=== PATIENT | female | born 1990 | race Caucasian/White ===

== ENCOUNTER 2017-07-10 11:14 | Emergency (ER) | payer MEDICAID ==
[~2017-07-10] VITALS: Ht 162.6 cm; Wt 136.4 kg
[~2017-07-10 11:14] MED LIST: CECLOR PULVULE500 MG PO; FLEXERIL 1010 MG/TAB PO; GLUCOPHAGE500 MG/TAB PO; NAPROSYN500 MG PO; NO HOME MEDICATIONS; PRENATAL MVI PO
[2017-07-10 11:18] VITALS: BP 155/87; PULSE 95; TEMP 98.1
[2017-07-10 12:36] LABS: INFLUENZA B NEGATIVE
== END 2017-07-10 12:50 | disposition home or self-care (01) ==
LOC: COL.ER 11:14
PROVIDERS: Nurse Practitioner
DX: B34.9 Viral infection, unspecified (principal)

== ENCOUNTER 2017-11-13 13:12 | Emergency (ER) | payer MEDICAID ==
[~2017-11-13] VITALS: Ht 162.6 cm; Wt 119.8 kg
[2017-11-13 13:14] VITALS: TEMP 99.5
[2017-11-13 14:33] LABS: BASO % 0.3 % (0.0-2.0); EOS # 0.3 (0.0-0.7); EOS % 3.3 % (0-4.0); GRAN # 6.7 (1.4-6.5); GRAN % 73.6 % (42.2-75.2); HEMATOCRIT 39.7 % (37.0-47.0); HEMOGLOBIN 13.1 g/dl (12.5-16.0); LYMPH # 1.4 (1.2-3.4); LYMPH % 15.7 % (20.0-51.0); MEAN CELL VOLUME 88 fl (80.0-100.0); MEAN CORPUSCULAR HEMOGLOBIN 29 pg (27.0-31.0); MEAN CORPUSCULAR HGB CONC 33 g/dl (33.0-37.0); MONO # 0.6 (0.1-0.6); MONO % 6.6 % (1.7-9.3); PLATELET COUNT 197 K/mm3 (130-400); RED BLOOD COUNT 4.49 M/mm3 (4.10-5.30); REDCELL DISTRIBUTION WIDTH-CV 14.4 % (11.5-14.5)
[2017-11-13 14:44] LABS: COLLECTION METHOD CLEAN CATCH
[2017-11-13 14:45] LABS: ALBUMIN 3.9 gm/dL (3.5-5.0); BILIRUBIN,TOTAL 1.6 mg/dL (0.0-1.0); C-REACTIVE PROTEIN 1.3 mg/dL (0.0-0.9); CALCIUM 8.6 mg/dL (8.4-10.2); CREATININE, serum 0.7 mg/dL (0.52-1.25); POTASSIUM 4.2 mmol/L (3.4-5.0); TOTAL PROTEIN 7.3 gm/dL (6.4-8.2)
[2017-11-13 15:24] LABS: MUCOUS Present /lpf; PH 5 (5-8); SQUAMOUS EPITHELIAL 0-2 /hpf; URINE APPEARANCE Clear; URINE BACTERIA Rare /hpf; URINE BILIRUBIN Negative (NEGATIVE); URINE BLOOD 1+ (NEGATIVE); URINE COLOR Yellow; URINE GLUCOSE Negative (NEGATIVE); URINE KETONE Negative (NEGATIVE); URINE LEUKOCYTE ESTERASE Negative (NEGATIVE); URINE NITRATE Negative (NEGATIVE); URINE PROTEIN(semi-quant) 3+ (NEGATIVE); URINE RBC 0-2 /hpf; URINE UROBILINOGEN Negative (NEGATIVE)
[2017-11-13] MEDS ORDERED: ZOFRAN ODT4 MG PO (16:25)
[2017-11-13 16:39] VITALS: BP 120/69; PULSE 88
== END 2017-11-13 16:41 | disposition home or self-care (01) ==
LOC: COL.ER 13:12
PROVIDERS: Nurse Practitioner
DX: R11.2 Nausea with vomiting, unspecified (principal); Z88.8 Allergy status to other drugs, medicaments and biological substances; Z98.890 Other specified postprocedural states
CPT/HCPCS: J2405; J7030

== ENCOUNTER 2018-01-15 08:10 | Emergency (ER) | payer MEDICAID ==
[~2018-01-15] VITALS: Ht 162.6 cm; Wt 140.9 kg
[~2018-01-15 08:10] MED LIST changes: +ZOFRAN ODT4 MG PO
[2018-01-15 08:41] VITALS: BP 138/85; PULSE 82; TEMP 97.8
== END 2018-01-15 08:41 | disposition home or self-care (01) ==
LOC: COL.ER 08:10
DX: H10.13 Acute atopic conjunctivitis, bilateral (principal)

== ENCOUNTER 2018-01-31 17:05 | Emergency (ER) | payer MEDICAID ==
[~2018-01-31] VITALS: Ht 162.6 cm; Wt 145.5 kg
[2018-01-31] MEDS ORDERED: POLYMYXIN B/TRIMETH OD (17:45)
[2018-01-31 18:05] VITALS: BP 140/96; PULSE 98; TEMP 98.2
== END 2018-01-31 18:06 | disposition home or self-care (01) ==
LOC: COL.ER 17:05
DX: H10.9 Unspecified conjunctivitis (principal); Z88.0 Allergy status to penicillin; Z90.89 Acquired absence of other organs; Z96.22 Myringotomy tube(s) status; Z98.890 Other specified postprocedural states

== ENCOUNTER 2018-07-01 19:32 | Emergency (ER) | payer MEDICAID ==
[~2018-07-01] VITALS: Ht 162.6 cm; Wt 130.0 kg
[~2018-07-01 19:32] MED LIST changes: +POLYMYXIN B/TRIMETH OD
[2018-07-01 19:38] VITALS: BP 153/85; TEMP 98
[2018-07-01 20:22] LABS: COLLECTION METHOD CLEAN CATCH
[2018-07-01 20:48] LABS: MUCOUS Present /lpf; PH 5 (5-8); URINE APPEARANCE Hazy; URINE BACTERIA Occasional /hpf; URINE BILIRUBIN Negative (NEGATIVE); URINE BLOOD Negative (NEGATIVE); URINE COLOR Yellow; URINE GLUCOSE Negative (NEGATIVE); URINE KETONE Negative (NEGATIVE); URINE LEUKOCYTE ESTERASE Negative (NEGATIVE); URINE NITRATE Positive (NEGATIVE); URINE PROTEIN(semi-quant) 3+ (NEGATIVE); URINE RBC 0-2 /hpf; URINE UROBILINOGEN Negative (NEGATIVE)
[2018-07-01 22:40] LABS: BASO # 0.1 (0.0-0.2); BASO % 0.6 % (0.0-2.0); EOS # 0.4 (0.0-0.7); EOS % 3.2 % (0-4.0); GRAN # 8.3 (1.4-6.5); GRAN % 63.5 % (42.2-75.2); HEMATOCRIT 37.7 % (37.0-47.0); HEMOGLOBIN 12.4 g/dl (12.5-16.0); LYMPH # 3.4 (1.2-3.4); LYMPH % 25.9 % (20.0-51.0); MEAN CELL VOLUME 88 fl (80.0-100.0); MEAN CORPUSCULAR HEMOGLOBIN 29 pg (27.0-31.0); MEAN CORPUSCULAR HGB CONC 33 g/dl (33.0-37.0); MEAN PLATELET VOLUME 9.9 fl (7.4-10.4); MONO # 0.9 (0.1-0.6); MONO % 6.5 % (1.7-9.3); PLATELET COUNT 233 K/mm3 (130-400); RED BLOOD COUNT 4.31 M/mm3 (4.10-5.30); REDCELL DISTRIBUTION WIDTH-CV 14.4 % (11.5-14.5)
[2018-07-01 22:56] LABS: ALBUMIN 4.1 gm/dL (3.5-5.0); BILIRUBIN,TOTAL 1.3 mg/dL (0.0-1.0); CALCIUM 8.9 mg/dL (8.4-10.2); CREATININE, serum 0.66 mg/dL (0.52-1.25); POTASSIUM 3.9 mmol/L (3.4-5.0); TOTAL PROTEIN 7.4 gm/dL (6.4-8.2)
[2018-07-01] MEDS ORDERED: CEFTIN 250250 MG/TAB PO (23:37)
[2018-07-01] MEDS ORDERED: NORCO 325 MG-51 TAB PO (23:42)
[2018-07-02 00:10] VITALS: PULSE 83
== END 2018-07-02 00:10 | disposition home or self-care (01) ==
LOC: COL.ER 19:32
PROVIDERS: Nurse Practitioner
DX: N39.0 Urinary tract infection, site not specified (principal); Z79.1 Long term (current) use of non-steroidal anti-inflammatories (NSAID); Z88.0 Allergy status to penicillin
CPT/HCPCS: J0696; J1885; J7030

== ENCOUNTER → 2018-10-13 | Outpatient (CLI) | payer MEDICAID ==
[~2018-10-13] MED LIST changes: +CEFTIN 250250 MG/TAB PO; +NORCO 325 MG-51 TAB PO
[2018-10-13 16:50] LABS: BASO # 0.1 (0.0-0.2); BASO % 0.5 % (0.0-2.0); EOS % 7.5 % (0-4.0); GRAN # 8.4 (1.4-6.5); GRAN % 65.4 % (42.2-75.2); HEMATOCRIT 38.1 % (37.0-47.0); HEMOGLOBIN 12.9 g/dl (12.5-16.0); LYMPH # 2.7 (1.2-3.4); MEAN CELL VOLUME 87 fl (80.0-100.0); MEAN CORPUSCULAR HEMOGLOBIN 30 pg (27.0-31.0); MEAN CORPUSCULAR HGB CONC 34 g/dl (33.0-37.0); MEAN PLATELET VOLUME 10.7 fl (7.4-10.4); MONO # 0.6 (0.1-0.6); MONO % 4.8 % (1.7-9.3); PLATELET COUNT 242 K/mm3 (130-400); RED BLOOD COUNT 4.36 M/mm3 (4.10-5.30); REDCELL DISTRIBUTION WIDTH-CV 14.5 % (11.5-14.5)
[2018-10-13 16:54] LABS: ALBUMIN 3.9 gm/dL (3.5-5.0); CALCIUM 9.3 mg/dL (8.4-10.2); CREATININE, serum 0.67 mg/dL (0.52-1.25); TOTAL PROTEIN 7.3 gm/dL (6.4-8.2)
== END ==
LOC: ZCOL.LAB 16:05
PROVIDERS: Family Medicine
DX: R19.7 Diarrhea, unspecified (principal); R10.9 Unspecified abdominal pain

== ENCOUNTER 2019-02-07 13:22 | Emergency (ER) | payer MEDICAID ==
[~2019-02-07] VITALS: Ht 162.6 cm; Wt 140.5 kg
[2019-02-07 13:25] VITALS: BP 137/80; TEMP 98.9
[2019-02-07] MEDS ORDERED: GLUCOPHAGE500 MG/TAB (13:39)
[2019-02-07] MEDS ORDERED: LEXAPRO 10MG10 MG (13:39)
[2019-02-07 13:54] LABS: COLLECTION METHOD CLEAN CATCH
[2019-02-07 14:00] LABS: MUCOUS Present /lpf; PH 6 (5-8); URINE APPEARANCE Clear; URINE BACTERIA None Seen /hpf; URINE BILIRUBIN Negative (NEGATIVE); URINE BLOOD Negative (NEGATIVE); URINE COLOR Yellow; URINE GLUCOSE Negative (NEGATIVE); URINE KETONE Negative (NEGATIVE); URINE LEUKOCYTE ESTERASE Negative (NEGATIVE); URINE NITRATE Negative (NEGATIVE); URINE PROTEIN(semi-quant) 3+ (NEGATIVE); URINE RBC 0-2 /hpf; URINE UROBILINOGEN Negative (NEGATIVE)
[2019-02-07] MEDS ORDERED: FLEXERIL 1010 MG/TAB PO (14:16)
[2019-02-07 14:55] VITALS: PULSE 85
== END 2019-02-07 14:57 | disposition home or self-care (01) ==
LOC: COL.ER 13:22
PROVIDERS: Emergency Medicine
DX: M54.5 Low back pain (principal); R80.9 Proteinuria, unspecified
CPT/HCPCS: J1885

== ENCOUNTER → 2019-07-22 | Outpatient (CLI) | payer MEDICAID ==
[~2019-07-22] MED LIST changes: +GLUCOPHAGE500 MG/TAB; +LEXAPRO 10MG10 MG
== END ==
LOC: COL.RAD 09:22
DX: R10.2 Pelvic and perineal pain (principal)

== ENCOUNTER 2019-12-05 12:02 | Emergency (ER) | payer MEDICAID ==
[~2019-12-05] VITALS: Ht 162.6 cm; Wt 155.0 kg
[2019-12-05 12:09] VITALS: BP 154/95; TEMP 97
[2019-12-05] MEDS ORDERED: WELLBUTRIN XL150 MG PO (12:31)
[2019-12-05] MEDS ORDERED: LEVOXYL0.025 MG PO (12:32)
[2019-12-05 13:30] VITALS: PULSE 94
== END 2019-12-05 13:30 | disposition home or self-care (01) ==
LOC: COL.ER 12:02
DX: J06.9 Acute upper respiratory infection, unspecified (principal); E11.9 Type 2 diabetes mellitus without complications; F32.9 Major depressive disorder, single episode, unspecified; Z79.84 Long term (current) use of oral hypoglycemic drugs; Z88.0 Allergy status to penicillin

== ENCOUNTER 2022-01-08 18:34 | Emergency (ER) | payer MEDICAID ==
[~2022-01-08] VITALS: Ht 162.6 cm; Wt 150.0 kg
[~2022-01-08 18:34] MED LIST changes: +LEVOXYL0.025 MG PO; +WELLBUTRIN XL150 MG PO
[2022-01-08 18:45] VITALS: TEMP 98.5
[2022-01-08 19:24] VITALS: BP 154/87; PULSE 64
== END 2022-01-08 19:24 | disposition home or self-care (01) ==
LOC: COL.ER 18:34
DX: M79.672 Pain in left foot (principal); E66.9 Obesity, unspecified

== ENCOUNTER 2024-04-09 17:07 | Emergency (ER) | payer MEDICAID ==
[~2024-04-09] VITALS: Ht 162.6 cm; Wt 159.1 kg
[2024-04-09 17:10] VITALS: TEMP 98.4
[2024-04-09] MEDS ORDERED: diphenhydrAMINE 50 MG/ML 1 ML VIAL IM ONE (17:30)
[2024-04-09] MEDS ORDERED: Ketorolac 60 MG/2 ML VIAL IM ONE (17:30)
[2024-04-09] MEDS ORDERED: Cyclobenzaprine 10 MG TAB PO ONE (17:30)
[2024-04-09] MEDS ORDERED: FLEXERIL 1010 MG/TAB PO (18:40)
[2024-04-09 18:47] VITALS: BP 116/88; PULSE 88
== END 2024-04-09 18:48 | disposition home or self-care (01) ==
LOC: COL.ER 17:07
DX: M62.830 Muscle spasm of back (principal); E66.9 Obesity, unspecified; Z68.44 Body mass index [BMI] 60.0-69.9, adult
CPT/HCPCS: J1200; J1885